=== PATIENT | male | born 1985 | race Two or more races ===

== ENCOUNTER 2024-10-15 09:27 | Emergency (ER) | payer OTHER, SELFPAY ==
[2024-10-15 09:38] VITALS: BP 153/86; PULSE 73; RESP 18; TEMP 36.6; O2SAT 97
--- NOTE | 2024-10-15 09:43 | XR_ITS ---
Examination: Knee, right , 3 views Technique: Knee AP, lateral, oblique 3 views Date and time of exam: October 15, 2024 1004 hours INDICATIONS: Patient fell 3 weeks ago with injury of the knee, knee pain. FINDINGS: No fracture or dislocation. Small knee effusion IMPRESSION: No acute fracture Recommend follow-up axial view of the patella as clinically warranted
--- NOTE | 2024-10-15 10:41 | EDNOTE_ITS ---
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 has been having pain Limitations: no limitations Related Data Previous Rx's ?Medication ?Instructions ?Recorded cyclobenzaprine 10 mg tablet 10 mg PO TID #14 tabs ibuprofen 800 mg tablet 800 mg PO TID PRN pain #30 t abs 10/15/24 Allergies Allergy/AdvReac Type Severity Reaction Status Date / Time No Known Allergies Allergy Verified 10/15/24 09:32 Review of Systems Review of Systems Systems Reviewed: All systems reviewed, normal except as documented Constitutional Constitutional: Reports system reviewed and no additional complaints, except as documented, Denies fever(s) and Denies headache(s) Eyes Eyes: Reports system reviewed and no additional complaints, except as documented and Denies blurry vision ENT Ears, Nose, Mouth, and Throat: Reports system reviewed and no additional complaints, except as documented, Denies headache(s), Denies nasal congestion and Denies nasal discharge Cardiovascular Cardiovascular: Reports system reviewed and no additional complaints, except as documented, Denies chest pain and Denies dyspnea Respiratory Respiratory: Reports system reviewed and no additional complaints, except as documented, Denies chest congestion, Denies cough and Denies dyspnea Gastrointestinal Gastrointestinal: Reports system reviewed and no additional complaints, except as documented and Denies abdominal pain Musculoskeletal Musculoskeletal: Reports system reviewed and no additional complaints, except as documented, Reports abnormal gait, Reports arthralgias, Denies deformity, Denies numbness, Reports stiffness and Denies tingling Integumentary/Breasts Skin/Breast: Reports system reviewed and no additional complaints, except as documented and Denies rash Neurologic Neurologic: Reports system reviewed and no additional complaints, except as documented, Reports as per HPI, Reports abnormal gait, Denies headache(s), Denies numbness and Denies tingling Past Medical History Social History SMOKING STATUS: Never smoker ED Exam General Limitations: Present no limitations General appearance: Present alert and in no apparent distress Head Head exam: Present atraumatic, normocephalic and normal inspection Eye Eye exam: Present normal appearance, PERRL and EOMI; Absent conjunctival injection ENT ENT exam: Present normal exam, normal oropharynx and mucous membranes moist Neck Neck exam: Present normal inspection, full ROM and trachea midline Chest Chest inspection: Present normal inspection and symmetric chest wall rise Respiratory Respiratory exam: Present normal lung sounds bilaterally Cardiovascular Cardiovascular exam: Present regular rate, normal rhythm and normal heart sounds Abdominal Exam Abdominal exam: Present soft and normal bowel sounds Extremities Exam Extremities exam: Present full ROM, tenderness, normal capillary refill and joint swelling Back Exam Back exam: Present normal inspection and full ROM Neurological Exam Neurological exam: Present alert, oriented X3 and CN II-XII intact Psychiatric Psychiatric exam: Present normal affect and normal mood Skin Skin exam: Present warm, dry, intact and normal color Course Quality Measures none Orders Category Date Time Status XR knee RT 3V Stat Exams 10/15/24 09:43 Completed Vital Signs Vital signs: Vital Signs Temperature 97.8 F 10/15/24 09:38 Pulse Rate 73 10/15/24 09:38 Respiratory Rate 18 10/15/24 09:38 Blood Pressure 153/86 H 10/15/24 09:38 Pulse Oximetry (%) 97 10/15/24 09:38 Oxygen Delivery Method Room Air 10/15/24 09:38 O2 saturation 97% on room air within normal limits Extremity Injury, Lower MDM Narrative MDM Narrative:: 38 year-old male presents to Emergency Department 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 has been having pain On exam patient well-appearing patient does not appear toxic no acute distress On exam patient has tenderness of the right knee but patient does have full range of motion but reports pain with movement X-ray of the right knee obtained no acute fracture or dislocation patient small knee effusion Patient placed in Yariel wrap and given crutches Explained the patient must follow-up with Workmen's Compensation doctor request MRI for worsening symptoms return immediately Patient data External records reviewed:: [facility] previous records Clinical information provided by:: patient Social determinants that could affect healthcare access:: none Patient has the following chronic illnesses:: See history How is presenting disease/condition affected by chronic disease/condition?: uneffected by Evaluation data The following diagnostics were reviewed and interpreted by me:: radiology exam(s) Lab and/or radiology exams considered but not ordered:: Radiology obtained Interpretation Summary: Reviewed by me Medications / Prescriptions Medications or Prescriptions considered but not ordered:: Given Medication administrations:: Given Consultations Consultation(s) initiated? (list below): No Diagnosis Extremity Injury, Lower Differential Diagnosis: acute internal derangement of knee and other Most likely diagnosis given after review of the tests above:: Knee sprain Admission Indicated Admission indicated?: not indicated Admission Request Was there a request for admission?: No Disposition Plan Disposition Plan: Discharge Discharge Attestation Discharge Attestation: The patient and all family members were given an opportunity to ask questions and understood the discharge instructions. Discharge instructions specifically effects, indications for sooner follow up or return to the emergency department, and the expected course of current diagnosis. Patient condition: Stable Discharge Plan Plan Patient Disposition: HOME (Self Care) Discharge Disposition comment: Stable Prescriptions/Referrals Prescriptions/Med Rec: New ibuprofen 800 mg tablet 800 mg PO TID PRN (Reason: pain) Qty: 30 0RF No Action cyclobenzaprine 10 mg tablet 10 mg PO TID Qty: 14 0RF Referrals: No Primary/Family,Physician [Primary Care Provider] - 10/16/24 Problem List Clinical Impression: Acute internal derangement of knee Patient/Caregiver Discharge Instructions Education Materials: How Your Knee Works Additional Instructions: Please follow up with your primary care doctor in the next 24-48hrs for any worsening symptoms return here immediately Print Language: Albanian Stand Alone Forms: Amanda Award Info., Patient Portal Info Letter PA/CUTTING AND SPLICING SUPERVISOR Supervising Physician PA/CUTTING AND SPLICING SUPERVISOR Supervising Physician: Dr. coates
== END 2024-10-15 12:03 | disposition home or self-care (01) ==
PROVIDERS: Emergency Provider Emergency Medicine
DX: S83.104A Unspecified dislocation of right knee, initial encounter (principal); X50.1XXA Overexertion from prolonged static or awkward postures, initial encounter
CPT/HCPCS: 73562; 99284